=== PATIENT | female | born 1965 | race Caucasian/White ===

== ENCOUNTER 2017-04-15 12:05 | Day surgery (SDC) | payer OTHER ==
[~2017-04-15] VITALS: Ht 165.1 cm; Wt 65.9 kg
[~2017-04-15 12:05] MED LIST: BENTYL20 MG PO; FERR160 PO; Norco 5-325 Ta1 EACH PO; Prilosec Otc20 MG PO; TYLENOL PM; Zofran Odt4 MG SL
== END 2017-04-15 14:00 | disposition home or self-care (01) ==
LOC: ORSCSDS 12:05
PROVIDERS: Surgery
PROC: 0DJD8ZZ Inspection of Lower Intestinal Tract, Via Natural or Artificial Opening Endoscopic (ICD-10-PCS; principal; 2017-04-15 13:30)
DX: Z12.11 Encounter for screening for malignant neoplasm of colon (principal); F41.1 Generalized anxiety disorder; Z87.891 Personal history of nicotine dependence
CPT/HCPCS: J0330; J1980; J2405; J7120

== ENCOUNTER → 2019-07-22 | Outpatient (CLI) | payer OTHER | END | disposition home or self-care (01) | LOC: LAB 10:22 → LAB SHORT 10:22 → LAB FUT 03-30 12:25 | DX: N20.0 Calculus of kidney (principal) | CPT/HCPCS: 81050 ==

== ENCOUNTER 2020-06-15 11:06 | Emergency (ER) | payer OTHER ==
[~2020-06-15] VITALS: Ht 165.1 cm; Wt 68.0 kg
== END 2020-06-15 11:46 | disposition home or self-care (01) ==
LOC: ER 11:06
DX: K04.7 Periapical abscess without sinus (principal); Z79.899 Other long term (current) drug therapy; Z87.891 Personal history of nicotine dependence
CPT/HCPCS: 99282